=== PATIENT | male | born 1935 | race Caucasian/White ===

== ENCOUNTER 2018-10-02 23:12 | Emergency (ER) | payer MEDICARE ==
--- NOTE | 2018-10-02 23:55 | EDM.PDOC ---
ED HPI GENERAL MEDICAL PROBLEM - General Stated Complaint: CAN'T PEE AND PAIN [id number] Time Seen by Provider: 10/02/18 23:42 Source of Information: Reports: Patient History Limitations: Reports: No Limitations - History of Present Illness INITIAL COMMENTS - FREE TEXT/NARRATIVE: This 82 yo male patient reports to the ED due to difficulties urinating. The patient reports that he has had lower abdominal pressure since about 1700 this evening, but has not been able to urinate. The patient reports that he feels like he has to urinate, but has not been able to go. The patient reports he has been constipated and has been taking laxatives. The patient has been able to have bowel movements this evening. 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 [No Known Home Meds] 10/02/18 [History] Past Medical History HEENT History: Reports: None Cardiovascular History: Reports: None Respiratory History: Reports: None Gastrointestinal History: Reports: None Genitourinary History: Reports: Other (See Below) Other Genitourinary History: hx 5 years ago Musculoskeletal History: Reports: None Neurological History: Reports: Other (See Below) Other Neuro History: dementia Psychiatric History: Reports: None Endocrine/Metabolic History: Reports: None Hematologic History: Reports: None Immunologic History: Reports: None Oncologic (Cancer) History: Reports: None Dermatologic History: Reports: None - Infectious Disease History Infectious Disease History: Reports: None - Past Surgical History Head Surgeries/Procedures: Reports: None Social & Family History - Family History Family Medical History: Noncontributory - Tobacco Use Smoking Status *Q: Never Smoker Second Hand Smoke Exposure: No - Caffeine Use Caffeine Use: Reports: Coffee - Recreational Drug Use Recreational Drug Use: No ED ROS GENERAL - Review of Systems Review Of Systems: ROS reveals no pertinent complaints other than HPI. ED EXAM, RENAL/ - Physical Exam Exam: See Below Exam Limited By: No Limitations General Appearance: Alert, WD/WN, Moderate Distress Eye Exam: Bilateral Eye: EOMI, Normal Inspection, PERRL Ears: Normal External Exam, Normal Canal, Hearing Grossly Normal, Normal TMs Nose: Normal Inspection, Normal Mucosa, No Blood Throat/Mouth: Normal Inspection, Normal Lips, Normal Teeth, Normal Gums, Normal Oropharynx, Normal Voice, No Airway Compromise Head: Atraumatic, Normocephalic Neck: Normal Inspection, Supple, Non-Tender, Full Range of Motion Respiratory/Chest: No Respiratory Distress, Lungs Clear, Normal Breath Sounds, No Accessory Muscle Use, Chest Non-Tender Cardiovascular: Normal Peripheral Pulses, Regular Rate, Rhythm, No Edema, No Gallop, No JVD, No Murmur, No Rub GI/Abdominal: Normal Bowel Sounds, Soft, Non-Tender, No Organomegaly, No Distention, No Abnormal Bruit, No Mass, Pelvis Stable, Other (Abdomen was non- tender at assessment (assessment was done after the catheter was inserted). ) (Male) Exam: Deferred Rectal (Males) Exam: Deferred Back Exam: Normal Inspection, Full Range of Motion, NT Extremities: Normal Inspection, Normal Range of Motion, Non-Tender, Normal Capillary Refill, No Pedal Edema Neurological: Alert, Oriented, Normal Gait Psychiatric: Normal Affect, Normal Mood Skin Exam: Warm, Dry, Intact, Normal Color, No Rash Lymphatic: No Adenopathy Course - Vital Signs Last Recorded V/S: Last Vital Signs Temp 36.2 C 10/02/18 23:18 Pulse 101 H 10/02/18 23:18 Resp 20 10/02/18 23:18 BP 146/95 H 10/02/18 23:18 Pulse Ox 99 10/02/18 23:18 - Orders/Labs/Meds Orders: Active Orders 24 hr Category Date Time Status Bladder Scan [RC] ASDIRECTED Care 10/02/18 23:15 Ordered UA RFX BRIT AND CULT IF INDIC [URIN] Urgent Lab 10/02/18 23:15 Ordered Departure - Departure Time of Disposition: 00:09 Disposition: Home, Self-Care 01 Condition: Fair Clinical Impression: Retention of urine - Discharge Information *PRESCRIPTION DRUG MONITORING PROGRAM REVIEWED*: Not Applicable *COPY OF PRESCRIPTION DRUG MONITORING REPORT IN PATIENT ALIA: Not Applicable Instructions: Acute Urinary Retention, Male, [id number] Forms: ED Department Discharge Care Plan Goals: The patient was advised of the examination and lab results during the visit. A urinary catheter was placed during the visit to empty the patient's bladder. The patient was advised to follow-up with a primary care facility on Thursday. If the patient has any additional symptoms or concerns, the patient should either return to the emergency department or visit a primary care facility. - My Orders Last 24 Hours: My Active Orders 10/02/18 23:15 Bladder Scan [RC] ASDIRECTED UA RFX BRIT AND CULT IF INDIC [URIN] Urgent - Assessment/Plan Last 24 Hours: My Active Orders 10/02/18 23:15 Bladder Scan [RC] ASDIRECTED UA RFX BRIT AND CULT IF INDIC [URIN] Urgent
== END 2018-10-03 00:21 | disposition home or self-care (01) ==
LOC: DL.ED 23:12
DX: R33.9 Retention of urine, unspecified (principal)
CPT/HCPCS: 51702; 81001; 99283

== ENCOUNTER 2018-12-30 05:18 | Day surgery (SDC) | payer MEDICARE, MEDICAID ==
[2018-12-30] MEDS ORDERED: Midazolam 1 MG/ML 2 ML SDV IV ONE ×2 (05:19→06:26)
[2018-12-30] MEDS ORDERED: fentaNYL 100 MCG/2 ML SDV IV ONE ×2 (05:19→06:25)
[2018-12-30] MEDS ORDERED: Dextrose 5%-0.45% NaCl 1,000 ML IV SCH (06:00)
[2018-12-30] MEDS ORDERED: fentaNYL 100 MCG/2 ML SDV ONE (06:14)
[2018-12-30] MEDS ORDERED: Midazolam 1 MG/ML 2 ML SDV ONE (06:14)
--- NOTE | 2018-12-30 07:18 | OR ---
DATE: 12/30/2018 PROCEDURE PERFORMED: Esophagogastroduodenoscopy and multiple pinch biopsies. INSTRUMENT USED: GIF-HQ190 Olympus video panendoscope. PREMEDICATIONS: No oral or topical anesthesia used, fentanyl 50 mcg intravenous, Versed 1 mg intravenous. The procedure was done under pulse oximetry, BP recording and rn cardiac rehab. INDICATION: The patient with unexplained iron-deficiency anemia. Esophagogastroduodenoscopy is performed for detection of any active erosive lesions, Chauhan esophagus, and/or malignancy also under consideration, H. pylori status to be determined, small bowel biopsies to be obtained for celiac disease if indicated, endoscopic hemostasis therapy if needed. DESCRIPTION OF PROCEDURE: The scope was passed with ease. Adequate visualization of the esophagus was made from proximal to distal areas. No upper esophageal lesions identified. No distal esophageal stricture. No uphill or downhill esophageal varices. No Sobia-Perez tear. No evidence of erosive esophagitis by Salix criteria. No esophageal polyp or tumor mass identified. Some tertiary contractions of the esophagus were noted. Z-line was seen at around 40 cm distal to the oral verge, configuration consistent with grade 1 by ZAP classification. No proximal gastric varices noted. Gastric fundus examination by retroflexion showed no polypoid lesions. No gastric ulcer, malignant mass, or vascular ectasia identified. Duodenal bulb showed no ulcer. Visualized second part of the duodenum was unremarkable, multiple pinch biopsies, 4 in number, were taken from different areas of the second part of the duodenum; and tissues were also obtained from the duodenal bulb at 9 and 12 o'clock positions and sent for any histopathologic evidence of celiac disease. Multiple pinch biopsies were obtained from the gastric antrum, proximal body and sent for pyloric test for H. pylori and histopathology. No bleeding was noted from any of the visualized areas at the completion of the examination. Photographs were taken of the duodenal bulb, gastric antrum, fundus, and distal esophagus. IMPRESSION: Presbyesophagus. The patient tolerated the procedure well. [facility] /[id number]
== END 2018-12-30 08:40 | disposition home or self-care (01) ==
LOC: DL.ENDO 05:18
PROVIDERS: ATTEND Internal Medicine Gastroenterology
DX: D50.9 Iron deficiency anemia, unspecified (principal); K29.50 Unspecified chronic gastritis without bleeding; K29.80 Duodenitis without bleeding; H91.90 Unspecified hearing loss, unspecified ear; E78.00 Pure hypercholesterolemia, unspecified
CPT/HCPCS: 43239; J2250; J3010; J7042

== ENCOUNTER 2019-01-04 05:40 | Day surgery (SDC) | payer MEDICARE, MEDICAID ==
[2019-01-04] MEDS ORDERED: Midazolam 1 MG/ML 2 ML SDV IV ONE ×3 (05:41→07:29)
[2019-01-04] MEDS ORDERED: fentaNYL 100 MCG/2 ML SDV IV ONE ×3 (05:41→07:18)
[2019-01-04] MEDS ORDERED: Sodium Chloride 0.9% 10 ML Syringe FLUSH PRN (06:00)
[2019-01-04] MEDS ORDERED: Dextrose 5%-0.45% NaCl 1,000 ML IV SCH (06:00)
[2019-01-04] MEDS ORDERED: Midazolam 1 MG/ML 2 ML SDV ONE (06:18)
[2019-01-04] MEDS ORDERED: fentaNYL 100 MCG/2 ML SDV ONE (06:18)
--- NOTE | 2019-01-04 13:37 | OR ---
DATE: 01/04/2019 PROCEDURES: Total colonoscopy, NBI with high magnification, and cold snare polypectomy. INSTRUMENT USED: PCF-H190D Olympus video colonoscope. PREMEDICATIONS: Fentanyl 100 mcg intravenous, Versed 2 mg intravenous, nasal O2 cannula. 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 INDICATIONS: The patient with iron deficiency anemia. Colonoscopic examination is done for detection of any polypoid lesions and removal, endoscopic hemostasis therapy if needed. DESCRIPTION OF PROCEDURE: Initial rectal exam showed large prolapsing external hemorrhoids. Rigid anoscopy was unremarkable. The colonoscope was passed with ease. In the rectosigmoid area, multiple 3 to 5 mm sized benign-appearing polyps were noted, photographs were taken and NBI including magnification views of the proximal rectal 5 mm sized polyp were taken. Cold snare polypectomy was done, the tissue was retrieved and sent for histopathology. Numerous scattered diverticula were noted in the distal left colon. The scope was passed with ease up to the ileocecal area, photographs were taken of the normal-appearing cecum identified by landmarks of appendiceal orifice and double-bulged ileocecal folds. No bleeding was noted from any of the visualized areas at the commencement of the examination. The bowel preparation was found to be adequate, Trivoli scale 2. No stricture. No vascular ectasia. No large isolated ulcerations seen. No evidence of diffuse inflammatory bowel disease in the form of friability, contact bleeding, or ulcerations. Probing the proximal sides of folds and flexures, using adequate distention and clearing up the stool material, withdrawal of the scope was made, cecum to rectum, time over 6 minutes. No bleeding was noted from any of the visualized areas at the completion of examination. IMPRESSION: 1. External hemorrhoids. 2. Rectosigmoid polyps. 3. Diverticulosis. The patient tolerated the procedure well. [facility] /[id number]
== END 2019-01-04 09:46 | disposition home or self-care (01) ==
LOC: DL.ENDO 05:40
PROVIDERS: ATTEND Internal Medicine Gastroenterology
DX: D50.9 Iron deficiency anemia, unspecified (principal); D12.8 Benign neoplasm of rectum; K64.4 Residual hemorrhoidal skin tags; K57.30 Diverticulosis of large intestine without perforation or abscess without bleeding; H91.90 Unspecified hearing loss, unspecified ear; E78.00 Pure hypercholesterolemia, unspecified
CPT/HCPCS: 45385; J2250; J3010; J7042